=== PATIENT | male | born 1980 | race Caucasian/White ===

== ENCOUNTER 2021-07-30 17:21 | Emergency (ER) | payer MEDICAID ==
[~2021-07-30] VITALS: Ht 172.7 cm; Wt 81.8 kg
[2021-07-30 17:55] VITALS: BP 116/83
[2021-07-30 18:22] LABS: COVID AG,FIA SOURCE NASOPHARYNGEAL
[2021-07-30 18:26] LABS: BASOPHILS % (AUTO) 0.4 % (0.0-2.0); EOSINOPHILS % (AUTO) 3.8 % (1.0-6.0); HEMATOCRIT 34.1 % (41-53); HEMOGLOBIN 11.2 g/dL (13.5-17.5); LYMPHOCYTES # (AUTO) 3.6 K/uL (1.0-4.8); LYMPHOCYTES % (AUTO) 43.5 % (22.0-44.0); MEAN CORPUSCULAR HEMOGLOBIN 28.4 pg (26.0-34.0); MEAN CORPUSCULAR HGB CONC 32.9 G/dL (31.0-37.0); MEAN CORPUSCULAR VOLUME 86 fL (80-100); MONOCYTES # (AUTO) 0.5 K/uL (0.1-1.0); MONOCYTES % (AUTO) 6.4 % (2.0-9.0); NEUTROPHILS # (AUTO) 3.8 K/uL (1.8-7.7); NEUTROPHILS % (AUTO) 45.9 % (40.0-70.0); PLATELET COUNT (AUTO) 263 K/uL (150-450); RED BLOOD CELL COUNT(AUTO) 3.95 MIL/uL (4.50-5.90); RED CELL DISTRIBUTION WIDTH 13.5 % (11.5-14.5)
[2021-07-30 18:29] LABS: ANION GAP 4 mmol/L (8-16); CARBON DIOXIDE 30 mmol/L (22-29); CHLORIDE 103 mmol/L (98-107); CREATININE 0.62 mg/dL (0.60-1.30); GLUCOSE,RANDOM 102 mg/dL (70-110); POTASSIUM 3.7 mmol/L (3.5-5.1); SODIUM SERUM 137 mmol/L (136-145); UREA NITROGEN, BLOOD 14 mg/dL (7-18)
[2021-07-30 18:30] LABS: CALCIUM, TOTAL 8.7 mg/dL (8.8-10.5); GLOMERULAR FILTR. RATE CALC > 60 mL/min (>60)
[2021-07-30 18:35] LABS: ALANINE AMINOTRANSFERASE 35 U/L (12-78); ALBUMIN 3.3 g/dL (3.4-5.0); ALKALINE PHOSPHATASE 83 U/L (46-116); ASPARTATE AMINOTRANSFERASE 27 U/L (15-37); BILIRUBIN,TOTAL 0.3 mg/dL (0.1-1.0); TOTAL PROTEIN, SERUM 7.2 g/dL (6.4-8.2)
== END 2021-07-30 19:14 | disposition home or self-care (01) ==
LOC: EMS 17:25
DX: F11.188 Opioid abuse with other opioid-induced disorder (principal); F17.210 Nicotine dependence, cigarettes, uncomplicated; Z20.822 Contact with and (suspected) exposure to COVID-19
CPT/HCPCS: 80053; 85025; 87426; 99283; G0480

== ENCOUNTER 2024-02-06 13:29 | Inpatient (IN) | payer MEDICAID ==
[~2024-02-06] VITALS: Ht 172.7 cm; Wt 54.1 kg
[~2024-02-06 13:29] MED LIST: OLAN5TAB52 PO; SERT-439 PO
[2024-02-06] MEDS ORDERED: HALOPERIDOL 5 MG TABLET PO PRN (23:15)
[2024-02-06] MEDS ORDERED: ZOLPIDEM TARTRATE 10 MG TABLET PO PRN (23:15)
[2024-02-07 01:02] VITALS: BP 103/84; PULSE 114; RESP 22; TEMP 97.8; O2SAT 98
[2024-02-07 11:20] VITALS: PULSE 68; O2SAT 99
[2024-02-07] MEDS: SERTRALINE HCL 50 MG TABLET PO SCH (12:00)
[2024-02-07] MEDS ORDERED: PETROLATUM,WHITE 28 GM JELLY TP PRN (13:45)
[2024-02-07] MEDS ORDERED: ALBUTEROL SULFATE HFA 90 MCG/PUFF 8 GM INHALER IH PRN (13:45)
[2024-02-07] MEDS ORDERED: MAG HYDROX/ALUMINUM HYD/SIMETH ES 30 ML SUSPENSION UDCUP PO PRN (13:45)
[2024-02-07] MEDS ORDERED: MAGNESIUM HYDROXIDE SUSPENSION 30 ML UDCUP PO PRN (13:45)
[2024-02-07] MEDS ORDERED: LOPERAMIDE HCL 2 MG CAPSULE PO PRN (13:45)
[2024-02-07] MEDS ORDERED: IBUPROFEN 400 MG TABLET PO PRN (13:45)
[2024-02-07] MEDS ORDERED: GuaiFENesin/D-METHORPHAN [SUGAR-FREE] 200-20MG/10 ML SYRUP UDCUP PO PRN (13:45)
[2024-02-07] MEDS ORDERED: DOCUSATE SODIUM 100 MG CAPSULE PO PRN (13:45)
[2024-02-07] MEDS ORDERED: ACETAMINOPHEN 325 MG TABLET PO PRN (13:45)
[2024-02-07] MEDS ORDERED: CloNIDine HCL 0.1 MG TABLET PO PRN (13:45)
[2024-02-07] MEDS ORDERED: NICOTINE 14 MG/24 HOUR PATCH TD PRN (13:45)
[2024-02-07] MEDS ORDERED: ONDANSETRON 4 MG TABLET PO PRN (13:45)
[2024-02-07 16:31] VITALS: BP 131/84; PULSE 65; RESP 20; TEMP 98.6; O2SAT 97
[2024-02-07] MEDS: OLANZapine 5 MG TABLET PO SCH (20:20)
[2024-02-07 20:31] VITALS: BP 131/80; PULSE 71; RESP 16; TEMP 98; O2SAT 100
[2024-02-08 08:10] VITALS: BP 121/88; PULSE 100; RESP 16; TEMP 97.6; O2SAT 97
[2024-02-08 20:28] VITALS: BP 133/80; PULSE 85; RESP 17; TEMP 98; O2SAT 98
[2024-02-09 08:09] VITALS: BP 139/80; PULSE 85; RESP 16; TEMP 98.2; O2SAT 98
[2024-02-09 09:07] LABS: HEMATOCRIT 43.2 % (41-53); LYMPHOCYTES # (AUTO) 3.7 K/uL (1.0-4.8); LYMPHOCYTES % (AUTO) 38.9 % (22.0-44.0); MEAN CORPUSCULAR HEMOGLOBIN 27.4 pg (26.0-34.0); MEAN CORPUSCULAR HGB CONC 32.5 G/dL (31.0-37.0); MEAN CORPUSCULAR VOLUME 84 fL (80-100); MONOCYTES # (AUTO) 0.5 K/uL (0.1-1.0); MONOCYTES % (AUTO) 5.6 % (2.0-9.0); NEUTROPHILS # (AUTO) 5.1 K/uL (1.8-7.7); NEUTROPHILS % (AUTO) 53.5 % (40.0-70.0); PLATELET COUNT (AUTO) 419 K/uL (150-450); RED BLOOD CELL COUNT(AUTO) 5.13 MIL/uL (4.50-5.90); RED CELL DISTRIBUTION WIDTH 15.7 % (11.5-14.5); WHITE BLOOD COUNT (AUTO) 9.5 K/uL (4.5-11.0)
[2024-02-09 09:17] LABS: HEMOGLOBIN A1C 5.6 % (3.8-5.6)
[2024-02-09 09:29] LABS: ALANINE AMINOTRANSFERASE 30 U/L (12-78); ALBUMIN 3.2 g/dL (3.4-5.0); ALKALINE PHOSPHATASE 81 U/L (46-116); ANION GAP 11 mmol/L (8-16); ASPARTATE AMINOTRANSFERASE 27 U/L (15-37); BILIRUBIN,TOTAL 0.5 mg/dL (0.1-1.0); CALCIUM, TOTAL 8.9 mg/dL (8.8-10.5); CARBON DIOXIDE 26 mmol/L (22-29); CHLORIDE 104 mmol/L (98-107); CHOLESTEROL 181 mg/dL (131-200); CREATININE 0.72 mg/dL (0.60-1.30); FREE T4 (FREE THYROXINE) 0.87 ng/dL (0.76-1.46); GLOMERULAR FILTR. RATE CALC > 60 mL/min (>60); GLUCOSE,RANDOM 92 mg/dL (70-110); HDL CHOLESTEROL 61 mg/dL (40-60); LDL CHOL (CALC.) 105 mg/dL (0-130); POTASSIUM 4.1 mmol/L (3.5-5.1); SODIUM SERUM 141 mmol/L (136-145); THYROID STIMULATING HORMONE 0.48 uIU/mL (0.36-3.74); TRIGLYCERIDES 75 mg/dL (15-150); UREA NITROGEN, BLOOD 18 mg/dL (7-18)
[2024-02-09 20:32] VITALS: BP 138/86; PULSE 86; RESP 16; TEMP 97; O2SAT 100
[2024-02-10 08:03] VITALS: BP 128/80; PULSE 68; RESP 17; TEMP 98.1; O2SAT 99
[2024-02-10 08:42] LABS: APPEARANCE,URINE CLEAR (CLEAR); BILIRUBIN,URINE NEGATIVE (NEGATIVE); COLOR,URINE YELLOW (YELLOW); GLUCOSE, URINE (UA) NEGATIVE (NEGATIVE); KETONES,URINE NEGATIVE (NEGATIVE); LEUKOCYTE ESTERASE ,URINE NEGATIVE (NEGATIVE); NITRATE,URINE NEGATIVE (NEGATIVE); OCCULT BLOOD,URINE NEGATIVE (NEGATIVE); PROTEIN,URINE TRACE mg/dL (NEGATIVE); SPECIFIC GRAVITIY, URINE 1.034 (1.003-1.030)
[2024-02-10 08:50] LABS: ALCOHOL, URINE DRUG SCREEN NEGATIVE (NEGATIVE); AMPHET/METH SCREEN,URINE POSITIVE (NEGATIVE); BARBITURATE SCREEN, URINE NEGATIVE (NEGATIVE); BENZODIAZEPINES SCREEN,URINE NEGATIVE (NEGATIVE); CANNABINOID SCREEN,URINE NEGATIVE (NEGATIVE); COCAINE SCREEN,URINE NEGATIVE (NEGATIVE); METHADONE SCREEN, URINE NEGATIVE (NEGATIVE); OPIATE SCREEN,URINE NEGATIVE (NEGATIVE); PHENCYCLIDINE SCREEN,URINE NEGATIVE (NEGATIVE)
[2024-02-10 20:21] VITALS: BP 142/87; PULSE 92; RESP 20; TEMP 98; O2SAT 98
[2024-02-11 08:05] VITALS: BP 120/81; PULSE 70; RESP 17; TEMP 97.9; O2SAT 99
[2024-02-11 20:43] VITALS: BP 133/91; PULSE 95; RESP 17; TEMP 97.6; O2SAT 100
[2024-02-12 08:12] VITALS: BP 138/90; PULSE 98; RESP 17; TEMP 97.5; O2SAT 100
[2024-02-12] MEDS: OLANZapine 5 MG TABLET PO ONE (09:43)
[2024-02-12] MEDS: LORazepam 2 MG TABLET PO PRN (11:31)
[2024-02-12] MEDS: OLANZapine 5 MG TABLET PO SCH (20:32)
[2024-02-13 08:28] VITALS: BP 131/84; PULSE 100; RESP 15; TEMP 98.2; O2SAT 97
[2024-02-13 20:21] VITALS: BP 129/70; PULSE 113; RESP 16; TEMP 97.2; O2SAT 99
[2024-02-14 08:18] VITALS: BP 121/63; PULSE 91; RESP 17; TEMP 98; O2SAT 98
[2024-02-14 20:09] VITALS: BP 121/74; PULSE 111; RESP 20; TEMP 97.5; O2SAT 100
[2024-02-15 08:58] VITALS: BP 115/71; PULSE 92; RESP 16; TEMP 96.2; O2SAT 100
[2024-02-15 20:06] VITALS: BP 115/79; PULSE 113; RESP 18; TEMP 97.2; O2SAT 98
[2024-02-16 08:06] VITALS: BP 120/79; PULSE 107; RESP 17; TEMP 98.2; O2SAT 97
[2024-02-16 20:02] VITALS: BP 129/79; PULSE 78; RESP 16; TEMP 97.1; O2SAT 99
[2024-02-17 08:22] VITALS: BP 119/69; PULSE 70; RESP 17; TEMP 98; O2SAT 96
[2024-02-17 20:25] VITALS: BP 126/77; PULSE 106; RESP 16; TEMP 96.6; O2SAT 99
[2024-02-18 08:34] VITALS: BP 128/74; PULSE 100; RESP 21; TEMP 97.7; O2SAT 100
[2024-02-18] MEDS ORDERED: OLAN5TAB52 PO (13:40)
== END 2024-02-18 17:15 | disposition home or self-care (01) | DRG 750 ==
LOC: B2S 23:14
PROVIDERS: ADMIT Psychiatry & Neurology Psychiatry; ATTEND Psychiatry & Neurology Psychiatry
PROC: GZHZZZZ Group Psychotherapy (ICD-10-PCS; principal; 2024-02-07)
PROC: GZ52ZZZ Individual Psychotherapy, Cognitive (ICD-10-PCS; 2024-02-07)
DX: F25.1 Schizoaffective disorder, depressive type (principal); E44.0 Moderate protein-calorie malnutrition; R45.851 Suicidal ideations; D64.9 Anemia, unspecified; F11.10 Opioid abuse, uncomplicated; F15.10 Other stimulant abuse, uncomplicated; F41.9 Anxiety disorder, unspecified; G47.00 Insomnia, unspecified; Z59.00 Homelessness unspecified; Z79.899 Other long term (current) drug therapy; Z68.1 Body mass index [BMI] 19.9 or less, adult
CPT/HCPCS: 80053; 80061; 80307; 81003; 83036; 84439; 84443; 85025

== ENCOUNTER 2024-02-07 04:47 | Emergency (ER) | payer MEDICAID ==
[~2024-02-07] VITALS: Ht 172.7 cm; Wt 62.7 kg
[2024-02-07 05:25] VITALS: TEMP 97.6
[2024-02-07 06:55] LABS: BASOPHILS % (AUTO) 1.2 % (0.0-2.0); EOSINOPHILS % (AUTO) 0.5 % (1.0-6.0); HEMATOCRIT 39.2 % (41-53); HEMOGLOBIN 12.7 g/dL (13.5-17.5); LYMPHOCYTES # (AUTO) 3.5 K/uL (1.0-4.8); MEAN CORPUSCULAR HEMOGLOBIN 27.2 pg (26.0-34.0); MEAN CORPUSCULAR HGB CONC 32.4 G/dL (31.0-37.0); MEAN CORPUSCULAR VOLUME 84 fL (80-100); MONOCYTES # (AUTO) 0.5 K/uL (0.1-1.0); MONOCYTES % (AUTO) 4.8 % (2.0-9.0); NEUTROPHILS # (AUTO) 6.4 K/uL (1.8-7.7); NEUTROPHILS % (AUTO) 60.5 % (40.0-70.0); PLATELET COUNT (AUTO) 394 K/uL (150-450); RED BLOOD CELL COUNT(AUTO) 4.66 MIL/uL (4.50-5.90); RED CELL DISTRIBUTION WIDTH 15.2 % (11.5-14.5); WHITE BLOOD COUNT (AUTO) 10.6 K/uL (4.5-11.0)
[2024-02-07 06:58] LABS: ANION GAP 9 mmol/L (8-16); CALCIUM, TOTAL 9.1 mg/dL (8.8-10.5); CARBON DIOXIDE 27 mmol/L (22-29); CHLORIDE 105 mmol/L (98-107); CREATININE 0.74 mg/dL (0.60-1.30); GLOMERULAR FILTR. RATE CALC > 60 mL/min (>60); GLUCOSE,RANDOM 107 mg/dL (70-110); POTASSIUM 3.7 mmol/L (3.5-5.1); SODIUM SERUM 141 mmol/L (136-145); UREA NITROGEN, BLOOD 10 mg/dL (7-18)
[2024-02-07 07:23] LABS: ALCOHOL, BLOOD (SERUM) < 3 mg/dL (0-10)
[2024-02-07] MEDS: CloNIDine HCL 0.1 MG TABLET PO ONE (09:45)
[2024-02-07] MEDS: BUPRENORPHINE HCL/NALOXONE HCL 2-0.5 MG SUBLINGUAL TABLET SL ONE (09:45)
[2024-02-07 10:42] VITALS: BP 133/83; PULSE 65; RESP 18; O2SAT 99
== END 2024-02-07 10:53 ==
LOC: EMS 04:48
DX: F32.9 Major depressive disorder, single episode, unspecified (principal); F17.210 Nicotine dependence, cigarettes, uncomplicated; F15.90 Other stimulant use, unspecified, uncomplicated
CPT/HCPCS: 99283; 80048; 85025; 36415; G0480; J0571

== ENCOUNTER 2024-07-13 17:05 | Inpatient (IN) | payer MEDICAID ==
[~2024-07-13] VITALS: Ht 170.2 cm; Wt 75.9 kg
[2024-07-13] MEDS ORDERED: METH5SOL20 PO (17:38)
[2024-07-13 18:18] LABS: BASOPHILS % (AUTO) 0.6 % (0.0-2.0); EOSINOPHILS % (AUTO) 3.8 % (1.0-6.0); HEMOGLOBIN 11.3 g/dL (13.5-17.5); LYMPHOCYTES # (AUTO) 4.6 K/uL (1.0-4.8); MEAN CORPUSCULAR HEMOGLOBIN 26.6 pg (26.0-34.0); MEAN CORPUSCULAR HGB CONC 31.3 G/dL (31.0-37.0); MEAN CORPUSCULAR VOLUME 85 fL (80-100); MONOCYTES # (AUTO) 0.4 K/uL (0.1-1.0); MONOCYTES % (AUTO) 5.7 % (2.0-9.0); NEUTROPHILS # (AUTO) 2.3 K/uL (1.8-7.7); NEUTROPHILS % (AUTO) 29.8 % (40.0-70.0); PLATELET COUNT (AUTO) 216 K/uL (150-450); RED BLOOD CELL COUNT(AUTO) 4.24 MIL/uL (4.50-5.90); RED CELL DISTRIBUTION WIDTH 16.5 % (11.5-14.5); WHITE BLOOD COUNT (AUTO) 7.6 K/uL (4.5-11.0)
[2024-07-13 18:21] LABS: ANION GAP 3 mmol/L (8-16); CALCIUM, TOTAL 8.4 mg/dL (8.8-10.5); CARBON DIOXIDE 32 mmol/L (22-29); CHLORIDE 105 mmol/L (98-107); CREATININE 0.76 mg/dL (0.60-1.30); GLOMERULAR FILTR. RATE CALC > 60 mL/min (>60); GLUCOSE,RANDOM 83 mg/dL (70-110); POTASSIUM 4.2 mmol/L (3.5-5.1); SODIUM SERUM 140 mmol/L (136-145); UREA NITROGEN, BLOOD 17 mg/dL (7-18)
[2024-07-13 18:22] LABS: ALCOHOL, BLOOD (SERUM) < 3 mg/dL (0-10)
[2024-07-13 18:39] LABS: LYMPHOCYTES % (AUTO) 60.1 % (22.0-44.0); RBC MORPHOLOGY COMMENT NORMAL RBC MORPH
[2024-07-13] MEDS ORDERED: LORazepam 2 MG TABLET PO PRN (18:45)
[2024-07-13] MEDS ORDERED: HALOPERIDOL 5 MG TABLET PO PRN (18:45)
[2024-07-13 18:46] LABS: COVID AG,FIA SOURCE NASAL SWAB
[2024-07-13 19:03] LABS: SARS-COV2 (COVID) ANTIGEN,FIA Negative (Negative)
[2024-07-13 20:27] LABS: PH,URINE DRUG SCREEN 5.5 (5.0-8.0)
[2024-07-13 20:32] LABS: ALCOHOL, URINE DRUG SCREEN NEGATIVE (NEGATIVE); AMPHET/METH SCREEN,URINE POSITIVE (NEGATIVE); BARBITURATE SCREEN, URINE NEGATIVE (NEGATIVE); BENZODIAZEPINES SCREEN,URINE POSITIVE (NEGATIVE); CANNABINOID SCREEN,URINE NEGATIVE (NEGATIVE); COCAINE SCREEN,URINE NEGATIVE (NEGATIVE); METHADONE SCREEN, URINE POSITIVE (NEGATIVE); OPIATE SCREEN,URINE NEGATIVE (NEGATIVE); PHENCYCLIDINE SCREEN,URINE NEGATIVE (NEGATIVE)
[2024-07-14] MEDS ORDERED: INFLUENZA VIRUS VACCINE TVS (6MO+) 2024-25/PF 45 MCG/0.5 ML SYRINGE IM. ONE (02:45)
[2024-07-14] MEDS ORDERED: ONDANSETRON 4 MG TABLET PO PRN ×2 (07:00→07:45)
[2024-07-14] MEDS ORDERED: LOPERAMIDE HCL 2 MG CAPSULE PO PRN ×2 (07:00→07:45)
[2024-07-14] MEDS ORDERED: DOCUSATE SODIUM 100 MG CAPSULE PO PRN ×2 (07:00→07:45)
[2024-07-14] MEDS ORDERED: ACETAMINOPHEN 325 MG TABLET PO PRN ×2 (07:00→07:45)
[2024-07-14] MEDS ORDERED: MAG HYDROX/ALUMINUM HYD/SIMETH ES 30 ML SUSPENSION UDCUP PO PRN ×2 (07:00→07:45)
[2024-07-14] MEDS ORDERED: MAGNESIUM HYDROXIDE SUSPENSION 30 ML UDCUP PO PRN ×2 (07:00→07:45)
[2024-07-14] MEDS ORDERED: ALBUTEROL SULFATE HFA 90 MCG/PUFF 8 GM INHALER IH PRN ×2 (07:00→07:45)
[2024-07-14] MEDS ORDERED: CloNIDine HCL 0.1 MG TABLET PO PRN ×2 (07:00→07:45)
[2024-07-14] MEDS ORDERED: NICOTINE 14 MG/24 HOUR PATCH TD PRN ×2 (07:00→07:45)
[2024-07-14] MEDS ORDERED: GuaiFENesin/D-METHORPHAN [SUGAR-FREE] 200-20MG/10 ML SYRUP UDCUP PO PRN ×2 (07:00→07:45)
[2024-07-14] MEDS ORDERED: PETROLATUM,WHITE 28 GM JELLY TP PRN ×2 (07:00→07:45)
[2024-07-14] MEDS ORDERED: IBUPROFEN 400 MG TABLET PO PRN ×2 (07:00→07:45)
[2024-07-14] MEDS: OLANZapine 5 MG TABLET PO SCH (20:09)
[2024-07-14 21:06] VITALS: RESP 18
[2024-07-14] MEDS: ZOLPIDEM TARTRATE 10 MG TABLET PO PRN (21:34)
[2024-07-15 08:35] LABS: BASOPHILS % (AUTO) 0.5 % (0.0-2.0); EOSINOPHILS % (AUTO) 1.4 % (1.0-6.0); HEMATOCRIT 40.4 % (41-53); HEMOGLOBIN 12.8 g/dL (13.5-17.5); LYMPHOCYTES # (AUTO) 2.7 K/uL (1.0-4.8); MEAN CORPUSCULAR HGB CONC 31.8 G/dL (31.0-37.0); MEAN CORPUSCULAR VOLUME 85 fL (80-100); MONOCYTES # (AUTO) 0.4 K/uL (0.1-1.0); MONOCYTES % (AUTO) 5.4 % (2.0-9.0); NEUTROPHILS # (AUTO) 4.5 K/uL (1.8-7.7); NEUTROPHILS % (AUTO) 57.7 % (40.0-70.0); PLATELET COUNT (AUTO) 194 K/uL (150-450); RED BLOOD CELL COUNT(AUTO) 4.76 MIL/uL (4.50-5.90); RED CELL DISTRIBUTION WIDTH 16.7 % (11.5-14.5); WHITE BLOOD COUNT (AUTO) 7.7 K/uL (4.5-11.0)
[2024-07-15 08:41] LABS: HEMOGLOBIN A1C 5.4 % (3.8-5.6)
[2024-07-15 09:01] LABS: ALANINE AMINOTRANSFERASE 50 U/L (12-78); ALBUMIN 2.9 g/dL (3.4-5.0); ALKALINE PHOSPHATASE 86 U/L (46-116); ANION GAP 5 mmol/L (8-16); ASPARTATE AMINOTRANSFERASE 51 U/L (15-37); BILIRUBIN,TOTAL 0.4 mg/dL (0.1-1.0); CALCIUM, TOTAL 8.8 mg/dL (8.8-10.5); CARBON DIOXIDE 30 mmol/L (22-29); CHLORIDE 106 mmol/L (98-107); CREATININE 0.67 mg/dL (0.60-1.30); GLOMERULAR FILTR. RATE CALC > 60 mL/min (>60); GLUCOSE,RANDOM 91 mg/dL (70-110); POTASSIUM 4.2 mmol/L (3.5-5.1); SODIUM SERUM 141 mmol/L (136-145); THYROID STIMULATING HORMONE 0.48 uIU/mL (0.36-3.74); TOTAL PROTEIN, SERUM 6.7 g/dL (6.4-8.2); UREA NITROGEN, BLOOD 11 mg/dL (7-18)
[2024-07-15 09:57] LABS: CHOL/HDL RATIO 2.2 (4.2-7.3); CHOLESTEROL 140 mg/dL (131-200); HDL CHOLESTEROL 63 mg/dL (40-60); LDL CHOL (CALC.) 58 mg/dL (0-130); TRIGLYCERIDES 93 mg/dL (15-150)
[2024-07-15 20:59] VITALS: RESP 18
[2024-07-16 10:49] VITALS: BP 121/60; PULSE 80; RESP 18; TEMP 97.9; O2SAT 98
[2024-07-16 21:37] VITALS: RESP 18
[2024-07-17 10:44] VITALS: BP 124/69; PULSE 60; RESP 18; TEMP 98.8; O2SAT 100
[2024-07-17 21:36] VITALS: RESP 18
[2024-07-18 09:58] VITALS: BP 109/66; PULSE 87; RESP 16; TEMP 98.9; O2SAT 97
[2024-07-18 21:12] VITALS: BP 113/62; PULSE 66; RESP 18; TEMP 98.7; O2SAT 97
[2024-07-19 08:37] VITALS: BP 119/73; PULSE 66; RESP 17; TEMP 97; O2SAT 99
[2024-07-19 21:00] VITALS: BP 115/67; PULSE 73; RESP 18; TEMP 98.1; O2SAT 98
[2024-07-20 09:38] VITALS: BP 116/65; PULSE 64; RESP 17; TEMP 98; O2SAT 98
== END 2024-07-20 18:21 | disposition home or self-care (01) | DRG 750 ==
LOC: EMS 17:05 → UNDOADMIN 23:23 → 3EC 23:23 → EDH 23:23
PROVIDERS: ADMIT Psychiatry & Neurology Child & Adolescent Psychiatry; ATTEND Psychiatry & Neurology Child & Adolescent Psychiatry
PROC: GZ56ZZZ Individual Psychotherapy, Supportive (ICD-10-PCS; principal; 2024-07-14)
PROC: GZHZZZZ Group Psychotherapy (ICD-10-PCS; 2024-07-14)
PROC: GZ52ZZZ Individual Psychotherapy, Cognitive (ICD-10-PCS; 2024-07-14)
DX: F25.1 Schizoaffective disorder, depressive type (principal); Z91.148 Patient's other noncompliance with medication regimen for other reason; R45.851 Suicidal ideations; D64.9 Anemia, unspecified; Z20.822 Contact with and (suspected) exposure to COVID-19; F17.210 Nicotine dependence, cigarettes, uncomplicated; F15.10 Other stimulant abuse, uncomplicated; F13.10 Sedative, hypnotic or anxiolytic abuse, uncomplicated; F11.20 Opioid dependence, uncomplicated; Z79.899 Other long term (current) drug therapy
CPT/HCPCS: 80048; 80053; 80061; 80307; 83036; 84443; 85025; 99285; G0480